=== PATIENT | male | born 1990 | race Hispanic/Latino ===

== ENCOUNTER 2018-07-25 15:18 | Emergency (ER) | payer BC ==
--- NOTE | 2018-07-25 17:14 | ED PDOC ---
HPI: General Adult Time Seen by Provider: 07/25/18 16:41 Chief Complaint (Nursing): Chest Pain Chief Complaint (Provider): CP History Per: Patient (28 Y/O MALE HERE WITH MIDSTERNAL CHEST PAIN NOTED INTERMITTENT SINCE WEDNESDAY ASSOCIATED AT TIMES WITH INABILITY TO TAKE DEEP BREATH. PATIENT STATES INITIAL SYMPTOMS NOTED 1 HOUR AFTER EXERCISE. HAS H/O SEASONAL ALLERGIES AND HAS INHALER AT HOME BUT DID NOT TRY TO USE TYPICALLY DOES NOT NEED. HAS BEEN TAKING MOTRIN AND STATES WAS SEEN IN URGENT CARE WITH EKG NOTING T WAVE ABNORMALITY NOTED LEAD III,AVF AND SENT TO ED FOR EVALUATION. PATIENT STATES CURRENTLY HE IS PAIN FREE. TOOK MOTRIN EARLY TODAY.) Past Medical History Reviewed: Historical Data, Nursing Documentation, Vital Signs Vital Signs: Last Vital Signs Temp 98.3 F 07/25/18 15:38 Pulse 73 07/25/18 15:38 Resp 14 07/25/18 15:38 BP 115/75 07/25/18 15:38 Pulse Ox 100 07/25/18 15:38 Primary Care Provider: Non [facility] Provider, - Family History Family History: States: No Known Family Hx - Home Medications Home Medications: Ambulatory Orders Medication Instructions Recorded Ibuprofen [Motrin] 600 mg PO Q8 PRN #21 tab 07/25/18 - Allergies Allergies/Adverse Reactions: Allergies Allergy/AdvReac Type Severity Reaction Status Date / Time Sulfa (Sulfonamide Allergy ANAPHYLAXIS Verified 07/25/18 16:44 Antibiotics) Review of Systems ROS Statement: Except As Marked, All Systems Reviewed And Found Negative Cardiovascular: Positive for: Chest Pain Physical Exam - Reviewed Nursing Documentation Reviewed: Yes Vital Signs Reviewed: Yes - Physical Exam Appears: Positive for: Well, Non-toxic, No Acute Distress Head Exam: Positive for: ATRAUMATIC, NORMAL INSPECTION, NORMOCEPHALIC Skin: Positive for: Normal Color, Warm, DRY Eye Exam: Positive for: EOMI, Normal appearance, PERRL ENT: Positive for: Normal ENT Inspection Neck: Positive for: Normal, Painless ROM Cardiovascular/Chest: Positive for: Regular Rate, Rhythm Respiratory: Positive for: CNT, Normal Breath Sounds Gastrointestinal/Abdominal: Positive for: Normal Exam, Soft Back: Positive for: Normal Inspection Extremity: Positive for: Normal ROM Neurological/Psych: Positive for: Awake, Alert, Normal Tone - Laboratory Results Result Diagrams: 07/25/18 18:18 07/25/18 18:18 - ECG ECG Rhythm: Positive for: Sinus Rhythm (NSR 77BPM; INCOMPLETE RBBB) O2 Sat by Pulse Oximetry: 100 - Progress ED Course And Treament: CXR: WNL Disposition - Clinical Impression Clinical Impression: Chest pain - Patient ED Disposition Is Patient to be Admitted: No - Disposition Referrals: [facility] [Outside] Disposition: Routine/Home Disposition Time: 19:22 Condition: FAIR Prescriptions: Ibuprofen [Motrin] 600 mg PO Q8 PRN #21 tab PRN Reason: Pain, Moderate (4-7) Instructions: Chest Pain Forms: [facility] ED School/Work Excuse
--- NOTE | 2018-07-25 17:52 | RAD ---
Date of service: 07/25/2018 HISTORY: CP COMPARISON: No prior. TECHNIQUE: Chest PA and lateral views FINDINGS: LUNGS: No active pulmonary disease. PLEURA: No significant pleural effusion identified. No pneumothorax apparent. CARDIOVASCULAR: No aortic atherosclerotic calcification present. Normal cardiac size. No pulmonary vascular congestion. OSSEOUS STRUCTURES: No significant abnormalities. VISUALIZED UPPER ABDOMEN: Normal. OTHER FINDINGS: None. IMPRESSION: No acute cardiopulmonary disease appreciated.
[2018-07-25 18:37] LABS: BASO % 0.5 % (0.0-2.0); EOS # 0.1 K/uL (0.0-0.7); EOS % 1.6 % (0.0-4.0); HEMOGLOBIN 15.4 g/dL (12.0-18.0); LYMPH # 1.4 K/uL (1.0-4.3); LYMPH % 20.2 % (20.0-40.0); MEAN CELL VOLUME 90.8 fl (80.0-94.0); MEAN CORPUSCULAR HEMOGLOBIN 30.3 pg (27.0-31.0); MEAN CORPUSCULAR HGB CONC 33.4 g/dL (33.0-37.0); MEAN PLATELET VOLUME 11.2 fl (7.2-11.7); MONO # 0.6 K/uL (0.0-0.8); MONO % 9.4 % (0.0-10.0); NEUT # 4.7 K/uL (1.8-7.0); NEUT % 68.3 % (50.0-75.0); NRBC % 0.1 % (0.0-0.0); RBC 5.1 Mil/uL (4.40-5.90); WHITE BLOOD COUNT 6.9 K/uL (4.8-10.8)
[2018-07-25 18:49] LABS: ALB/GLOB RATIO 1.5 (1.0-2.1); ALBUMIN 4.9 g/dL (3.5-5.0); ALT/SGPT 21 U/L (21-72); AST/SGOT 25 U/L (17-59); BLOOD UREA NITROGEN 13 mg/dl (9-20); CALCIUM 9.4 mg/dL (8.4-10.2); GFR NON-AFRICAN AMERICAN > 60
[2018-07-25 19:59] VITALS: BP 121/81; PULSE 61; RESP 18; TEMP 98.1; O2SAT 98
== END 2018-07-25 20:10 | disposition home or self-care (01) ==
LOC: H.ER 15:18
DX: R07.89 Other chest pain (principal); Z88.2 Allergy status to sulfonamides